=== PATIENT | female | born 1965 | race Caucasian/White ===

== ENCOUNTER 2022-12-26 12:36 | Inpatient (IN) | payer SELFPAY ==
--- OUTSIDE RECORDS SUMMARY | 2022-12-26 12:39 | XMS REPORT | Continuity of Care Document ---
:1965 Author Organization [facility] t Address [address] [place] [address] Care Team Providers Name Role Phone Donna Montes Primary Care Physician Radiology Attending Clinician Unavailable RADIOLOGY Attending Clinician Unavailable Problems This patient has no known problems. Allergies, Adverse Reactions, Alerts Allergy Allergy Status Severity Reaction(s) Onset Inactive Treating Comm ents Source Name Type Date Date Clinician NO KNOWN Drug Active [facility] Social Habit Start Date Stop Date Quantity Comments Source Exposure to 2022-04-19 2022-04-29 Not sure [facility] SARS-CoV-2 (event) 00:00:00 13:56:00 Medica l Branch Sex Assigned At [birth year] [place] [facility] 00:00:00 00:00:00 [facility] [place] Smoking Status Start Date Stop Date Source Unknown if ever smoked [facility] Medications This patient has no known medications. Procedures Procedure Date / Time Performing Clinician Source Performed CT LOW DOSE LUNG NODULE 2022-05-10 13:19:00 Ifeanyi Barr [facility] PATIENT FINANCIAL 2022-05-10 12:58:44 Doctor Unassigned, [facility] POLICY [facility] NO SHOW OR MISSED 2022-05-10 12:58:29 Doctor Unassigned, [facility] APPOINTMENT POLICY [facility] ACKNOWLEDGEMENT NOTICE OF PRIVACY 2022-05-10 12:58:12 Doctor Unassigned, Univers [facility] PRACTICES [facility] CONSENT/REFUSAL FOR 2022-05-10 12:57:57 Doctor Unassigned, [facility] DIAGNOSIS AND TREATMENT [facility] ASSIGNMENT OF BENEFITS 2022-05-10 12:57:43 [facility] Encounters Start End Encounter Admission Attending Care Care Encounter Source Date/Time Date/Time Type Type Clinicians Facility Department ID 2022-05-10 2022-05-10 [facility] Radiology [facility] [id number] Univers 08:00:35 23:59:00 Encounter [place] [id number] ity of [place] [id number] [facility] [id number] [facility] [address] Branch 2022-05-10 2022-05-10 [facility] Radiology [facility] [id number] Univers 07:55:25 07:59:00 Encounter [place] [id number] [facility] [id number] [facility] [id number] [facility] [address] 2022-05-10 2022-05-10 Outpatient R RADIOLOGY [facility] [id number] Univers 00:00:00 07:59:00 [facility] Results Test Description Test Time Test Comments Results Result Comments Source LIPID PANEL 2022-04-17 04:17:29 Test Item Value Reference Range Interpretation Comme nts CHOLESTEROL (test code = 2210) 255 MG/DL <200 H TRIGLYCERIDES (test code = 2232) 127 MG/DL <150 HDL CHOLESTEROL (test code = 58 MG/DL >39 2220) CALC LDL CHOL (test code = 2237) 171 MG/DL <100 H NOTE: CALCULATED LDL IS BASED ON SHANTA-VILLARREAL METHOD WHICHINCLUDES A DJUSTABLE TRIGLYCERIDE:VL DL CHOLESTEROL RATIO.THIS FACT OR VARIES BY MEASURED TRIGLY CERIDE AND NON-HDLCHOLESTE ROL CONCENTRATIONS WITH INCREASED CALCULATED LDL SEENIN HIGHER T RIGLYCERIDE OR LOWER NON-HDL S PECIMENS. FOR MOREINFORMATION , SEE CLIENT ANNOUNCEMENT AT [email or web address] RATIO LDL/HDL (test code = 2.95 RATIO <3.22 2238) COMPREHENSIVE METABOLIC [id number] 04:17:29 Test Item Value Reference Range Interpretation Comments GLUCOSE (test code = 90 MG/DL 70-99 2216) BUN (test code = 11 MG/DL 6-20 2207) CREATININE (test 1.04 MG/DL 0.60-1.30 code = 2214) eGFR (2020 CKD-EPI) 63 ML/MIN/1.73 >60 (test code = 13315) CALC BUN/CREAT (test 11 RATIO - code = 2235) SODIUM (test code = 141 MEQ/L 111-102 6406) POTASSIUM (test code 5.2 MEQ/L 3.5-5.4 = 2227) CHLORIDE (test code 102 MEQ/L 95-107 = 2214) CARBON DIOXIDE (test 29 MEQ/L 19-31 code = 2206) CALCIUM (test code = 8.8 MG/DL 8.5-10.5 2208) PROTEIN, TOTAL (test 6.6 G/DL 6.1-8.3 code = 2228) ALBUMIN (test code = 4.1 G/DL 3.5-5.2 2200) CALC GLOBULIN (test 2.5 G/DL 1.9-3.7 code = 2240) CALC A/G RATIO (test 1.6 RATIO 1.0-2.6 code = 223) BILIRUBIN, TOTAL 0.2 MG/DL See_Comment [Automated message] (test code = 220) The syste m which generated this result transmit danielle reference range : <=1.2. The refe rence range was not u sed to interpret th is result as normal/abnormal . ALKALINE PHOSPHATASE 86 U/L 40-133 (test code = 2204) AST (test code = 15 U/L 9-40 2217) ALT (test code = 16 U/L 5-40 2218) CBC W/AUTO DIFF WITH [id number] 02:44:36 Test Item Value Reference Range Interpretation Comments WBC (test code = 6.1 K/UL 3.5-11.0 1001) RBC (test code = 3.98 M/UL 3.80-5.40 1002) HEMOGLOBIN (test 10.6 G/DL 11.5-15.5 L code = 1003) HEMATOCRIT (test 33.7 % 34.0-45.0 L code = 1004) MCV (test code = 84.7 fL 80.0-99.0 1005) MCH (test code = 26.6 PG 25.0-33.0 1006) MCHC (test code = 31.5 G/DL 31.0-36.0 1007) RDW (test code = 14.2 % 11.5-15.0 1038) NEUTROPHILS (test 59.8 % code = 1008) LYMPHOCYTES (test 25.0 % code = 1010) MONOCYTES (test code 9.3 % = 1011) EOSINOPHILS (test 4.1 % code = 1012) BASOPHILS (test code 1.5 % = 1013) IMMATURE 0.3 % GRANULOCYTES (test code = 1036) NUCLEATED RBCS (test 0.0 /100 See_Comment [Autom ated message] code = 1065) WBC'S The system [employer] generated this result transmitted ref erence range: 0.0. The reference range was not used to int erpret this result as normal/abnormal . PLATELET COUNT (test 263 K/UL 130-400 code = 1015) ABSOLUTE NEUTROPHILS 3.67 K/UL 1.50-7.50 (test code = 1066) ABSOLUTE LYMPHOCYTES 1.53 K/UL 1.00-4.00 (test code = 1067) ABSOLUTE MONOCYTES 0.57 K/UL 0.20-1.00 (test code = 1068) ABSOLUTE EOSINOPHILS 0.25 K/UL 0.00-0.50 (test code = 1040) ABSOLUTE BASOPHILS 0.09 K/UL 0.00-0.20 (test code = 1069) ABS IMMATURE 0.02 K/UL 0.00-0.10 GRANULOCYTES (test code = 1020) ABS NUCLEATED RBCS 0.00 K/UL 0.00-0.11 UNLESS O THERWISE (test code = 72437) INDICATE D, ALL TESTING PERFORM [facility] [place]. [address] [place] [id number] [facility] DIRECTOR: KERA JOEL M.D. CLIA NUMBER [id number] CAP ACCREDITATION N O. [id number]
[2022-12-26] MEDS ORDERED: NA CHLORIDE 0.9% 1,000 ML ONE (12:59)
[2022-12-26 13:12] LABS: Hematocrit 29.5 % (36.0-45.0); Lymphocytes % 8.4 % (15.3-44.8); MCV 85.6 fL (80-100); MPV 6.6 fL (7.6-11.3); RBC Red Blood Cell Count 3.45 M/uL (3.86-4.86)
[2022-12-26 13:20] LABS: Protime INR 1.33
[2022-12-26 13:32] LABS: Albumin 2.5 g/dL (3.4-5.0); Bilirubin Direct 0.2 mg/dL (0-0.2); Bilirubin Total 0.4 mg/dL (0.2-1.0); Potassium 3.8 mmol/L (3.5-5.1); Protein, Total 6.6 g/dL (6.4-8.2); Troponin High Sensitivity 7.3 pg/mL (<58.9)
[2022-12-26 13:46] LABS: Urine Blood Trace-intact (Negative); Urine Glucose Negative (Negative); Urine Protein Negative (Negative); Urine pH 5.5 (5.0-7.0)
--- NOTE | 2022-12-26 13:49 | RAD REPORT ---
EXAM DESCRIPTION: RAD - Chest Single View - 12/26/2022 1:11 pm CLINICAL HISTORY: DYSPNEA COMPARISON: None TECHNIQUE: AP portable chest image was obtained 12/26/2022 1:11 pm . FINDINGS: Dense consolidation is seen in the lateral right lung base. In the acute clinical setting this is most likely pneumonia. Correlation is needed with any clinical or laboratory findings for pne umonia. A more aggressive or malignant mass is possible if there are no pneumonia findings. Overall interstitial pattern is prominent with the baseline for the patient unknown. There is no vasc ular engorgement. Heart size is normal. Retrocardiac density is most likely a small hiatal hernia. No measurable pleural effusion and no pneumothorax. No acute bony abnormality seen. No acute aortic findings suspected. IMPRESSION: Focal mass density lateral right lung base on a baseline study. This is typically pneumonia in the acute clinical setting. A more aggressive mass is possible if ther e are no pneumonia findings.
[2022-12-26 13:51] LABS: Urine Bacteria None Seen /HPF (<20); Urine RBC <5 /HPF (None Seen)
[2022-12-26] MEDS ORDERED: CEFTRIAXONE 1000 MG/VIAL ONE (14:58)
[2022-12-26] MEDS ORDERED: NA CHLORIDE 0.9% 250 ML ONE (14:59)
[2022-12-26] MEDS ORDERED: AZITHROMYCIN 500 MG INJ IVPB ONE (14:59)
--- NOTE | 2022-12-26 15:30 | RAD REPORT ---
EXAM DESCRIPTION: CT - Chest For Pe Angio - 12/26/2022 2:50 pm CLINICAL HISTORY: r/o PE COMPARISON: No comparisons TECHNIQUE: Dynamically enhanced 3 mm thick images of the chest were obtained during administration o f approximately 150mL Isovue 370 IV contrast. Coronal and oblique MIP reconstruction images were gene rated and reviewed. Exam utilizes a protocol to evaluate the pulmonary arterial tree. All CT scans are performed using dose optimization technique as appropriate and may include automated exposure control or mA/KV adjustment according to patient size. FINDINGS: No pulmonary emboli are identified. The aorta as imaged shows no acute or suspicious finding. No cardiomegaly. There is minimal pericardi al effusion seen anteriorly. In the anterolateral right lung base of the right middle lobe, abutting the pleura, there is a 6 x 4 centimeter soft tissue mass present. There are no air bronchograms within the mass. No calcifications are present. Margins are irregular. This is the correlate to the chest film abnormality. No pleural effusion or pleural thickening. No other lung parenchymal abnormality identified. Small right hilar lymph nodes are present. There is small lymph nodes present as well along the right side of the subcarinal region of the mediastinum. Retrocaval-pretracheal lymph node is present 14 x 14 mm. Right middle lobe mass abuts the pleura but does not clearly invade the chest wall. Moderately large hiatal hernia is present. IMPRESSION: No pulmonary emboli identified. A 6 x 4 cm mass in the lateral right middle lobe abutting the pleura is present in the correlate to t he chest film abnormality.The top differential consideration is a primary lung malignancy. Atypical p resentation of pneumonia is possible. Pulmonary hemorrhage is doubtful in the absence of pulmonary em bolus. Small hilar and mediastinal lymph nodes are present and could be reactive or pathologic.
--- NOTE | 2022-12-26 15:46 | ER ---
Nurse's Notes [facility] Name: Ingrid Hodgson Age: 57 yrs Sex: Female : 1965 Arrival Date: 12/26/2022 Time: 12:38 Bed 3 Private MD: Diagnosis: Other pneumonia, unspecified organism;Dehydration;Palpitations Presentation: 12/26 12:39 Chief complaint: EMS states: Palpitations and SOB x 4 days. AOx4, HR 120s, SBP 70s, hb improved to 90 after 1L NS administered to 20g LAC. ST on 12 lead. Coronavirus screen: At this time, the client does not indicate any symptoms associated with coronavirus-19. Ebola Screen: No symptoms or risks identified at this time. Initial Sepsis Screen: Does the patient meet any 2 criteria? No. Patient's initial sepsis screen is negative. Does the patient have a suspected source of infection? No. Patient's initial sepsis screen is negative. Risk Assessment: Do you want to hurt yourself or someone else? Patient reports no desire to harm self or others. Onset of symptoms was December 23, 2022. 12:39 Method Of Arrival: EMS: [facility] hb 12:39 Acuity: ANTWON 2 hb 12:40 Care prior to arrival: Medication(s) given: Normal saline infusion, 1000 mL, IV hb initiated. 20 GA, in the left antecubital area. Triage Assessment: 12:42 General: Appears in no apparent distress. ill, Behavior is calm, cooperative. Pain: hb Denies pain. EENT: No signs and/or symptoms were reported regarding the EENT system. Neuro: Level of Consciousness is awake, alert, obeys commands, Oriented to person, place, time, situation. Cardiovascular: Reports palpitations, shortness of breath, Patient's skin is warm and dry. Respiratory: Respiratory effort is even, unlabored, Respiratory pattern is regular, symmetrical. GI: No signs and/or symptoms were reported involving the gastrointestinal system. : No signs and/or symptoms were reported regarding the genitourinary system. Derm: Skin is intact, Skin is dry, Skin is pale. Musculoskeletal: No signs and/or symptoms reported regarding the musculoskeletal system. Historical: - Allergies: 12:41 No Known Allergies; hb - Home Meds: 17:38 Prilosec 40 mg Oral cpDR 1 cap once daily [Active]; lisinopril 20 mg Oral tab 1 tab hb twice a day [Active]; amlodipine 5 mg tab 1 tab nightly [Active]; Lopressor 50 mg Oral tab nightly [Active]; mobic [Active]; amitriptyline 50 mg Oral tab 1 tab nightly [Active]; - PMHx: 12:41 COPD; hb 12:43 HTN; hb - Immunization history:: Adult Immunizations up to date. - Social history:: Smoking status: Patient denies any tobacco usage or history of. Screenin:43 [facility] ED Fall Risk Assessment (Adult) Score/Fall Risk Level 3 or more points = High hb Risk Oriented to surroundings, Maintained a safe environment, Educated pt \T\ family on fall prevention, incl call for assistance when getting out of bed. Abuse screen: Denies threats or abuse. Denies injuries from another. Nutritional screening: No deficits noted. Tuberculosis screening: No symptoms or risk factors identified. Assessment: 12:43 General: See triage assessment. hb 13:51 Reassessment: Patient appears in no apparent distress at this time. Patient and/or hb family updated on plan of care and expected duration. Pain level reassessed. Patient is alert, oriented x 3, equal unlabored respirations, skin warm/dry/pink. 14:37 Reassessment: Patient appears in no apparent distress at this time. Patient and/or hb family updated on plan of care and expected duration. Pain level reassessed. Patient is alert, oriented x 3, equal unlabored respirations, skin warm/dry/pink. 15:35 Reassessment: Patient appears in no apparent distress at this time. Patient and/or hb family updated on plan of care and expected duration. Pain level reassessed. Patient is alert, oriented x 3, equal unlabored respirations, skin warm/dry/pink. 16:14 Reassessment: Patient appears in no apparent distress at this time. Patient and/or hb family updated on plan of care and expected duration. Pain level reassessed. Patient is alert, oriented x 3, equal unlabored respirations, skin warm/dry/pink. 17:23 Reassessment: Patient appears in no apparent distress at this time. Patient and/or hb family updated on plan of care and expected duration. Pain level reassessed. Patient is alert, oriented x 3, equal unlabored respirations, skin warm/dry/pink. 18:08 Reassessment: Patient appears in no apparent distress at this time. Patient and/or hb family updated on plan of care and expected duration. Pain level reassessed. Patient is alert, oriented x 3, equal unlabored respirations, skin warm/dry/pink. Vital Signs: 12:39 BP 115 / 77; Pulse 128; Resp 17; Temp 98.3; Pulse Ox 98% on R/A; Weight 81.19 kg; hb Height 5 ft. 4 in. (162.56 cm); Pain 0/10; 13:00 BP 95 / 68; Pulse 126; Resp 17; Pulse Ox 100% on R/A; hb 15:13 BP 108 / 74; Pulse 124; Resp 23; Pulse Ox 99% on R/A; hb 16:04 BP 100 / 68; Pulse 130; Resp 18; Pulse Ox 97% on R/A; hb 17:23 BP 106 / 72; Pulse 119; Resp 15; Pulse Ox 97% on R/A; hb 18:08 BP 104 / 71; Pulse 115; Resp 21; Pulse Ox 100% on R/A; hb 12:39 Body Mass Index 30.72 (81.19 kg, 162.56 cm) hb ED Course: 12:38 Patient arrived in ED. hb 12:39 [facility]sec[facility] jh7 12:39 Kevin Stein MD is Attending Physician. jh7 12:41 Triage completed. hb 12:41 Arm band placed on. hb 12:45 Soumya Brunson, RN is Primary Nurse. hb 13:13 XRAY Chest (1 view) In Process Unspecified. EDMS 13:50 Urine Microscopic Only Sent. mm9 14:52 CT Chest For PE Angio In Process Unspecified. EDMS 15:45 Manuel Villaseñor MD is Hospitalizing Provider. jh7 18:41 SARS RAPID Sent. hb Administered Medications: 13:03 Drug: NS 0.9% 1000 ml Route: IV; Rate: 125 ml/hr; Site: left antecubital; hb 15:13 Drug: Rocephin (cefTRIAXone) 1 grams Route: IV; Rate: 1 calculated rate; Site: left hb antecubital; 15:14 Drug: AZITHromycin 500 mg Route: IVPB; Infused Over: 1 hrs; Site: left antecubital; hb Medication: 12:43 VIS not applicable for this client. hb Outcome: 15:46 Decision to Hospitalize by Provider. [email or web address] 21:10 Patient left the ED. as6 Signatures: Dispatcher [employer] EDSoumya Bardales, RN Ady Stoner RN RN as6 Poornima Canseco, HEAD CHARRER HEAD CHARRER [facility] Ilene Liu [facility]
--- NOTE | 2022-12-26 15:46 | EDPHYS ---
Physician Documentation [facility] Name: Ingrid Hodgson Age: 57 yrs Sex: Female : 1965 Arrival Date: 12/26/2022 Time: 12:38 Bed 3 Private MD: ED Physician Kevin Stein HPI: 12/26 12:38 This 57 yrs old Female presents to ER via EMS with complaints of Palpitations. jh7 12:38 The patient presents with a history of heart racing. Context: The symptoms occur at jh7 rest. Onset: The symptoms/episode began/occurred this morning. Associated signs and symptoms: Pertinent positives: chest pain, lightheadedness, SOB, Pertinent negatives: syncope, vomiting. 57-year-old female presents with palpitations, chest pressure, shortness of breath, and nausea. EMS reports sinus tach in the 140s upon arrival and hypotension in the 70s. Reports that the patient improved after a 1 L bolus given in route. Blood glucose 159. Reports that the patient has been experiencing dark urine, dry mucous membranes, and dehydration. PCP Dr. Murphy.. Historical: - Allergies: 12:41 No Known Allergies; hb - Home Meds: 17:38 Prilosec 40 mg Oral cpDR 1 cap once daily [Active]; lisinopril 20 mg Oral tab 1 tab hb twice a day [Active]; amlodipine 5 mg tab 1 tab nightly [Active]; Lopressor 50 mg Oral tab nightly [Active]; mobic [Active]; amitriptyline 50 mg Oral tab 1 tab nightly [Active]; - PMHx: 12:41 COPD; hb 12:43 HTN; hb - Immunization history:: Adult Immunizations up to date. - Social history:: Smoking status: Patient denies any tobacco usage or history of. ROS: 12:38 Constitutional: Negative for fever, chills, and weight loss, Eyes: Negative for injury, jh7 pain, redness, and discharge, Neck: Negative for injury, pain, and swelling, Abdomen/GI: Negative for abdominal pain, nausea, vomiting, diarrhea, and constipation, Back: Negative for injury and pain, MS/Extremity: Negative for injury and deformity, Skin: Negative for injury, rash, and discoloration, Neuro: Negative for headache, weakness, numbness, tingling, and seizure. 12:38 Cardiovascular: Positive for chest pain, palpitations. 12:38 Respiratory: Positive for shortness of breath, Negative for cough, wheezing. 12:38 All other systems are negative. Exam: 12:38 Head/Face: Normocephalic, atraumatic. Eyes: Pupils equal round and reactive to light, jh7 extra-ocular motions intact. Lids and lashes normal. Conjunctiva and sclera are non-icteric and not injected. Cornea within normal limits. Periorbital areas with no swelling, redness, or edema. 12:38 Neck: Trachea midline, no thyromegaly or masses palpated, and no cervical lymphadenopathy. Supple, full range of motion without nuchal rigidity, or vertebral point tenderness. No Meningismus. 12:38 Chest/axilla: Normal chest wall appearance and motion. Nontender with no deformity. No lesions are appreciated. Cardiovascular: Regular rate and rhythm with a normal S1 and S2. No gallops, murmurs, or rubs. Normal PMI, no JVD. No pulse deficits. Abdomen/GI: Soft, non-tender, with normal bowel sounds. No distension or tympany. No guarding or rebound. No evidence of tenderness throughout. Back: No spinal tenderness. No costovertebral tenderness. Full range of motion. MS/ Extremity: Pulses equal, no cyanosis. Neurovascular intact. Full, normal range of motion. Neuro: Awake and alert, GCS 15, oriented to person, place, time, and situation. Motor strength 5/5 in all extremities. Sensory grossly intact. Normal gait. 12:38 Constitutional: The patient appears alert, awake, restless, uncomfortable. 12:38 Respiratory: the patient does not display signs of respiratory distress, Respirations: normal, Breath sounds: decreased breath sounds, are heard in the right lower lobe, Respiratory rate: 20 12:38 Skin: Appearance: Color: pale. Vital Signs: 12:39 BP 115 / 77; Pulse 128; Resp 17; Temp 98.3; Pulse Ox 98% on R/A; Weight 81.19 kg; hb Height 5 ft. 4 in. (162.56 cm); Pain 0/10; 13:00 BP 95 / 68; Pulse 126; Resp 17; Pulse Ox 100% on R/A; hb 15:13 BP 108 / 74; Pulse 124; Resp 23; Pulse Ox 99% on R/A; hb 16:04 BP 100 / 68; Pulse 130; Resp 18; Pulse Ox 97% on R/A; hb 17:23 BP 106 / 72; Pulse 119; Resp 15; Pulse Ox 97% on R/A; hb 18:08 BP 104 / 71; Pulse 115; Resp 21; Pulse Ox 100% on R/A; hb 12:39 Body Mass Index 30.72 (81.19 kg, 162.56 cm) hb MDM: 12:39 Patient medically screened. [facility] 15:45 Differential diagnosis: arrythmia, dehydration, Pneumonia, sepsis, pulmonary embolism, jh7 acute IN, SVT. Data reviewed: vital signs, nurses notes, lab test result(s), EKG, radiologic studies, CT scan, plain films. Consideration of Admission/Observation Patient was admitted/placed on observation. Management of patient was discussed with the following: Hospitalist: Dr. Villaseñor. I considered the following discharge prescriptions or medication management in the emergency department Medications were administered in the Emergency Department. See MAR. Independent interpretation of the following test(s) in the Emergency Department EKG: See my EKG interpretation above. Care significantly affected by the following chronic conditions: Hypertension, Chronic Obstructive Pulmonary Disease. Counseling: I had a detailed discussion with the patient and/or guardian regarding: the historical points, exam findings, and any diagnostic results supporting the discharge/admit diagnosis, the need for further work-up and treatment in the hospital. ED course: Lung malignancy versus atypical pneumonia. Spoke to the patient who stated that she has been a heavy smoker for most of her life and that they found to areas on her lung concerning for cancer. Reports that she had both an x-ray and a CT then and they told her to follow-up. She reports that she has had a cough for many years but that within the past 2 days the cough has become more productive and that the shortness of breath worsen. Explained to her that we will treat her for atypical pneumonia and dehydration that lung malignancy is unlikely finding based on the CT results.. 12/26 12:46 Order name: Basic Metabolic Panel; Complete Time: 13:37 [facility] 12/26 12:46 Order name: CBC with Diff; Complete Time: 13:30 [facility] 12/26 12:46 Order name: D-Dimer; Complete Time: 13:30 [facility] 12/26 12:46 Order name: LFT's; Complete Time: 13:37 [facility] 12/26 12:46 Order name: Magnesium; Complete Time: 13:37 [facility] 12/26 12:46 Order name: NT PRO-BNP; Complete Time: 13:37 [facility] 12/26 12:46 Order name: PT-INR; Complete Time: 13:30 [facility] 12/26 12:46 Order name: Troponin HS; Complete Time: 13:37 [facility] 12/26 12:46 Order name: Lactate w/ 2H reflex if indic.; Complete Time: 13:37 [facility] 12/26 12:46 Order name: CK; Complete Time: 13:37 [facility] 12/26 12:47 Order name: Urine Microscopic Only; Complete Time: 13:54 [facility] 12/26 13:46 Order name: Urine Dipstick-Ancillary; Complete Time: 13:48 [facility] 12/26 14:16 Order name: Blood Culture Adult (2) [facility] 12/26 18:27 Order name: CBC with Automated Diff EDMS 12/26 12:46 Order name: XRAY Chest (1 view); Complete Time: 13:54 [facility] 12/26 13:29 Order name: CT Chest For PE Angio; Complete Time: 15:34 [facility] 12/26 18:27 Order name: CBC with Automated Diff EDMS / 18:27 Order name: Comprehensive Metabolic Panel EDMS 12/26 18:27 Order name: Comprehensive Metabolic Panel EDMS 12/26 18:27 Order name: Lipid Profile EDMS 12/26 18:27 Order name: Lipid Profile EDMS 12/26 18:27 Order name: Magnesium EDMS 12/26 18:27 Order name: Magnesium EDMS 12/26 18:27 Order name: NT PRO-BNP EDMS 12/26 18:27 Order name: NT PRO-BNP EDMS 12/26 18:27 Order name: Phosphorus EDMS 12/26 18:27 Order name: Phosphorus EDMS 12/26 18:28 Order name: SARS RAPID kj1 12/26 18:51 Order name: SARS-COV-2 Antigen Rapid EDMS 12/26 12:46 Order name: EKG; Complete Time: 12:47 [facility] 12/26 12:46 Order name: Cardiac monitoring; Complete Time: 12:53 [facility] 12/26 12:46 Order name: EKG - Nurse/Tech; Complete Time: 12:53 [facility] 12/26 12:46 Order name: IV Saline Lock; Complete Time: 12:53 [facility] 12/26 12:46 Order name: Labs collected and sent; Complete Time: 13:03 [facility] 12/26 12:46 Order name: O2 Per Protocol; Complete Time: 12:53 [facility] 12/26 12:46 Order name: O2 Sat Monitoring; Complete Time: 12:53 [facility] 12/26 12:47 Order name: Urine Dipstick-Ancillary (obtain specimen); Complete Time: 13:50 [facility] 12/26 18:27 Order name: CONS Physician Consult [facility] 12/26 18:27 Order name: Heart Healthy EDKS EC:38 Rate is 123 beats/min. Rhythm is regular. QRS [place] is Normal. QRS interval is normal at [facility] 86 msec. QT interval is normal at 422 msec. No Q waves. Clinical impression: Accelerated junctional rhythm with retrograde conduction. Administered Medications: 13:03 Drug: NS 0.9% 1000 ml Route: IV; Rate: 125 ml/hr; Site: left antecubital; hb 15:13 Drug: Rocephin (cefTRIAXone) 1 grams Route: IV; Rate: 1 calculated rate; Site: left hb antecubital; 15:14 Drug: AZITHromycin 500 mg Route: IVPB; Infused Over: 1 hrs; Site: left antecubital; hb Disposition Summary: 12/26/22 15:46 Hospitalization Ordered Hospitalization Status: Observation [facility] Provider: Manuel Villaseñor [facility] Location: Telemetry/MedSurg (observation) [facility] Condition: Stable [facility] Problem: chronic [facility] Symptoms: have worsened [facility] Bed/Room Type: Standard [facility] Room Assignment: [facility](12/26/22 20:07) cg Diagnosis - Other pneumonia, unspecified organism [facility] - Dehydration [facility] - Palpitations [facility] Forms: - Medication Reconciliation Form [facility] - SBAR form [facility] Signatures: Dispatcher [employer] Silvia Wright RN RN Soumya Ward RN RN Poornima Canseco FNP FNP [facility] Corrections: (The following items were deleted from the chart) 20:07 15:46 [facility] cg
[2022-12-26 18:51] LABS: SARS-CoV-2 Antigen Rapid Res Negative (Negative)
[2022-12-26] MEDS ORDERED: IPRATROPIUM BROM 0.5MG/2.5ML ONE (19:55)
[2022-12-26] MEDS ORDERED: ALBUTEROL 2.5 MG/3 ML NEB SOL ONE (19:55)
[2022-12-26] MEDS: ALBUTEROL 2.5 MG/3 ML NEB SOL NEB SCH (19:55)
[2022-12-26] MEDS: IPRATROPIUM BROM 0.5MG/2.5ML NEB SCH (19:55)
[2022-12-26] MEDS ORDERED: Levofloxacin 750mg IV 750 MG/150 ML BAG IV SCH (20:00)
[2022-12-26 22:15] VITALS: BMI 30.7
[2022-12-27] MEDS: IPRATROPIUM BROM 0.5MG/2.5ML NEB SCH ×4 (01:30→19:25)
[2022-12-27] MEDS: ALBUTEROL 2.5 MG/3 ML NEB SOL NEB SCH ×4 (01:30→19:25)
[2022-12-27] MEDS: ACETAMINOPHEN 500 MG TAB PO PRN (03:46)
[2022-12-27 06:14] LABS: Lymphocytes % 9.2 % (15.3-44.8); MCV 84.7 fL (80-100); MPV 6.4 fL (7.6-11.3); RBC Red Blood Cell Count 3.08 M/uL (3.86-4.86)
[2022-12-27 06:28] LABS: Albumin 2.3 g/dL (3.4-5.0); Bilirubin Total 0.3 mg/dL (0.2-1.0); Magnesium 2.1 mg/dL (1.6-2.4); Phosphorus 2.5 mg/dL (2.5-4.9); Potassium 3.6 mmol/L (3.5-5.1); Protein, Total 6.5 g/dL (6.4-8.2)
[2022-12-27] MEDS ORDERED: INFLUENZA VACCINE (for 6+ mo) 0.5 ML DOSE IMVAC ONE (08:00)
[2022-12-27] MEDS: levoFLOXacin 750 MG TAB PO SCH (08:26)
[2022-12-27] MEDS: ENOXAPARIN 40 MG/0.4 ML SQ SCH (08:26)
--- NOTE | 2022-12-27 11:23 | P.HP ---
Certification for Inpatient Patient admitted to: Inpatient With expected LOS: >2 Midnights Practitioner: I am a practitioner with admitting privileges, knowledge of patient current condition, hospital course, and medical plan of care. Services: Services provided to patient in accordance with Admission requirements found in Title 42 Section 412.3 of the Code of Federal Regulations Patient History Date of Service: 12/26/22 Reason for admission: Lung mass/postobstructive pneumonia History of Present Illness: Patient is a 57-year-old female who has a history of COPD from chronic tobacco use who comes into the hospital with shortness of breath. Patient was found to have a lung mass last February and she was followed up with no worsening of the lung mass. However, patient had CT scan last night which showed the lung lesion. This is worsening. Will consult pulmonary for further evaluation. Continue with antibiotic therapy. Continue with nebs, steroids, and repeat chest x-ray over the next 24 to 48 hours depending on patient's clinical symptoms. Allergies No Known Allergies Allergy (Verified 12/26/22 21:30) Home Medications: Amitriptyline [Elavil] 50 mg PO BEDTIME 12/26/22 Amlodipine Besylate [Norvasc] 5 mg PO BEDTIME 12/26/22 Lisinopril [Zestril] 20 mg PO BID 12/26/22 Metoprolol Tartrate [Lopressor] 50 mg PO BEDTIME 12/26/22 Omeprazole [Prilosec] 40 mg PO DAILY 12/26/22 - Past Medical/Surgical History Has patient received pneumonia vaccine in the past: No Diabetic: No -: COPD -: HTN -: TUBAL LIGATION - Family History Mother Medical History: Heart disease, Diabetes Father Medical History: Cancer - Social History Smoking Status: Former smoker Alcohol use: No CD- Drugs: No Caffeine use: Yes Place of Residence: Home Review of Systems 10-point ROS is otherwise unremarkable Physical Examination - Vital Signs Temperature: 97.1 F Blood Pressure: 99/68 Pulse: 102 Respirations: 18 Pulse Ox (%): 99 - Physical Exam General: Alert, In no apparent distress, Oriented x3 HEENT: Atraumatic, PERRLA, Mucous membr. moist/pink, EOMI, Sclerae nonicteric Neck: Supple, 2+ carotid pulse no bruit, No LAD, Without JVD or thyroid abnormality Respiratory: Diminished, Expiratory wheezes Cardiovascular: Regular rate/rhythm, Normal S1 S2, No murmurs Gastrointestinal: Normal bowel sounds, Soft and benign, Non-distended, No tenderness Musculoskeletal: No clubbing, No swelling, No tenderness Integumentary: No rashes Neurological: Normal gait, Normal speech, Normal strength at 5/5 x4 extr, Normal tone, Sensation intact, Cranial nerves 3-12 intact, Normal affect Lymphatics: No axilla or inguinal lymphadenopathy - Studies Laboratory Data (last 24 hrs) 12/26/22 13:00: PT 14.6 H, INR 1.33 12/26/22 13:00: WBC 11.80 H, Hgb 9.4 L, Hct 29.5 L, Plt Count 319 12/26/22 13:00: Sodium 133 L, Potassium 3.8, BUN 11, Creatinine 1.11 H, Glucose 130 H, Magnesium 2.0, Total Bilirubin 0.4, AST 23, ALT 27, Alkaline Phosphatase 79 Assessment & Plan - Problems (Diagnosis) (1) COPD with acute exacerbation Current Visit: Yes Status: Acute (2) Postobstructive pneumonia Current Visit: Yes Status: Acute (3) History of hypertension Current Visit: Yes Status: Acute (4) Tobacco dependence in remission Current Visit: Yes Status: Acute (5) Right lower lobe lung mass Current Visit: Yes Status: Acute - Plan Plan: 1. Continue with albuterol and Atrovent nebs 2. Continue with IV steroids 3. Continue with antibiotic therapy 4. Pulmonary consultation 5. Room air O2 sats 6. Repeat chest x-ray in the morning 7. GI and DVT prophylaxis Discharge Plan: Home Plan to discharge in: Greater than 2 days - Advance Directives Does patient have a Living Will: No Does patient have a Durable POA for Healthcare: No - Code Status/Comfort Care Code Status Assessed: Yes Code Status: Full Code Critical Care: No Time Spent Managing PTS Care (In Minutes): 45
[2022-12-27] MEDS: ONDANSETRON 4 MG/2 ML VIAL IV PRN (11:46)
--- NOTE | 2022-12-27 12:00 | P.CNS ---
Date of Consult: 12/27/22 Reason for Consult: Right lower lobe lung mass Chief Complaint: Hemoptysis History of Present Illness: Patient is 57 years of age been having problems for the past 6 months had episodes of hypertension associated with hemoptysis as complaining of the sunken spells I saw her in August last year pneumonia had gotten better this time patient doing worse over the past 4 days came in here was tachycardic he is also had intermittent hemoptysis CT scan shows a right lower lobe lung mass Allergies No Known Allergies Allergy (Verified 12/26/22 21:30) Home Medications: Amitriptyline [Elavil] 50 mg PO BEDTIME 12/26/22 Amlodipine Besylate [Norvasc] 5 mg PO BEDTIME 12/26/22 Lisinopril [Zestril] 20 mg PO BID 12/26/22 Metoprolol Tartrate [Lopressor] 50 mg PO BEDTIME 12/26/22 Omeprazole [Prilosec] 40 mg PO DAILY 12/26/22 - Past Medical/Surgical History Diabetic: No -: COPD -: HTN -: TUBAL LIGATION - Family History Mother Medical History: Heart disease, Diabetes Father Medical History: Cancer - Social History Alcohol use: No CD- Drugs: No Caffeine use: Yes Place of Residence: Home Review of Systems General: Weakness Respiratory: Cough Physical Examination Temp Pulse Resp BP Pulse Ox 97.1 F 102 H 18 99/68 99 12/27/22 11:22 12/27/22 11:22 12/27/22 11:22 12/27/22 11:22 12/27/22 11:22 General: Alert, In no apparent distress Neck: Supple Respiratory: Clear to auscultation bilaterally Cardiovascular: No edema, Normal S1 S2 Laboratory Data (last 24 hrs) 12/26/22 13:00: PT 14.6 H, INR 1.33 12/26/22 13:00: WBC 11.80 H, Hgb 9.4 L, Hct 29.5 L, Plt Count 319 12/26/22 13:00: Sodium 133 L, Potassium 3.8, BUN 11, Creatinine 1.11 H, Glucose 130 H, Magnesium 2.0, Total Bilirubin 0.4, AST 23, ALT 27, Alkaline Phosphatase 79 - Problems (1) Right lower lobe lung mass Current Visit: Yes Status: Acute Plan: Patient is 57 years of age admitted with tachycardia history of hemoptysis does have a right lower lobe lung mass most likely she has lung cancer and to arrange for an FNA by radiology patient is a former smoker mildly elevated white count she is also anemic normocytic blood pressure is also slightly low mild cardiomegaly cussed with the patient risk and benefit of the procedure including bleeding infection lung collapse patient is on multiple blood pressure pills at home Addendum CT scan reviewed from [facility] last year did not show this lung mass
--- NOTE | 2022-12-27 15:38 | P.PN ---
Subjective Date of Service: 12/27/22 Patient states she feels better. Patient is scheduled for bronchoscopy in a.m. N.p.o. after midnight. Review of Systems 10-point ROS is otherwise unremarkable Physical Examination - Vital Signs Temperature: 97.1 F Blood Pressure: 99/68 Pulse: 102 Respirations: 18 Pulse Ox (%): 99 - Physical Exam General: Alert, In no apparent distress, Oriented x3 HEENT: Atraumatic, PERRLA, EOMI Neck: Supple, JVD not distended Respiratory: Clear to auscultation bilaterally, Normal air movement Cardiovascular: Regular rate/rhythm, Normal S1 S2 Gastrointestinal: Normal bowel sounds, No tenderness Musculoskeletal: No tenderness Integumentary: No rashes Neurological: Normal speech, Normal tone, Normal affect Lymphatics: No axilla or inguinal lymphadenopathy - Studies Medications List Reviewed: Yes Assessment & Plan - Problems (Diagnosis) (1) COPD with acute exacerbation Current Visit: Yes Status: Acute (2) Postobstructive pneumonia Current Visit: Yes Status: Acute (3) History of hypertension Current Visit: Yes Status: Acute (4) Tobacco dependence in remission Current Visit: Yes Status: Acute (5) Right lower lobe lung mass Current Visit: Yes Status: Acute - Plan Plan: 1. Continue with albuterol and Atrovent nebs 2. Continue with IV steroids 3. Continue with antibiotic therapy 4. Pulmonary consultation -scheduled for bronchoscopy in a.m. 5. Room air O2 sats 6. Repeat chest x-ray in the morning 7. GI and DVT prophylaxis - Advance Directives Does patient have a Living Will: No Does patient have a Durable POA for Healthcare: No - Code Status/Comfort Care Code Status: Full Code
[2022-12-27] MEDS ORDERED: CYCLOBENZAPRINE 10 MG TAB PO ONE (15:56)
[2022-12-27] MEDS: lisinopriL 20 MG TAB PO SCH (20:20)
[2022-12-27] MEDS: METOPROLOL TAR 50 MG TAB PO SCH (20:24)
[2022-12-27] MEDS: AMITRIPTYLINE 50 MG TAB PO SCH (20:50)
[2022-12-27] MEDS ORDERED: AMLODIPINE 5 MG TAB PO SCH (21:00)
[2022-12-28] MEDS: TEMAZEPAM 15 MG CAP PO PRN ×2 (00:45→21:29)
[2022-12-28] MEDS: ALBUTEROL 2.5 MG/3 ML NEB SOL NEB SCH ×4 (01:20→20:00)
[2022-12-28] MEDS: IPRATROPIUM BROM 0.5MG/2.5ML NEB SCH ×4 (01:20→20:20)
[2022-12-28 06:42] LABS: Absolute Lymphocytes (CBC) 1.2 K/uL (0.7-4.9); Hematocrit 27.8 % (36.0-45.0); MPV 6.5 fL (7.6-11.3); RBC Red Blood Cell Count 3.31 M/uL (3.86-4.86)
--- NOTE | 2022-12-28 06:55 | RAD REPORT ---
EXAM DESCRIPTION: RAD - Chest Single View - 12/28/2022 6:18 am CLINICAL HISTORY: pneumonia COMPARISON: Portable 12/26/2022 TECHNIQUE: AP portable chest image was obtained 12/28/2022 6:18 am . FINDINGS: Right lung base mass density has not changed. Lung markings are accentuated by a more shal low inspiration on the current examination compared to 12/26/2022 imaging. Heart size and vasculature are stable. No pneumothorax or enlarging pleural effusion. Delete select IMPRESSION: Stable portable chest as detailed.
[2022-12-28 07:02] LABS: Magnesium 2.2 mg/dL (1.6-2.4); Potassium 3.6 mmol/L (3.5-5.1)
[2022-12-28] MEDS ORDERED: POTASSIUM CL SA 10 MEQ TAB PO ONE (09:00)
[2022-12-28] MEDS ORDERED: HOME MED 1 EA UNK (Omeprazole [Prilosec] 40 MG Capsule.Dr) PO SCH (09:00)
[2022-12-28] MEDS: PANTOPRAZOLE 40MG TABLET PO SCH (09:04)
[2022-12-28] MEDS: lisinopriL 20 MG TAB PO SCH ×2 (09:04→21:28)
[2022-12-28] MEDS: levoFLOXacin 750 MG TAB PO SCH (09:05)
[2022-12-28] MEDS: ENOXAPARIN 40 MG/0.4 ML SQ SCH (09:05)
[2022-12-28] MEDS: CYCLOBENZAPRINE 10 MG TAB PO PRN ×2 (09:06→21:29)
[2022-12-28] MEDS: ACETAMINOPHEN 500 MG TAB PO PRN (13:40)
[2022-12-28] MEDS: AMITRIPTYLINE 50 MG TAB PO SCH (21:00)
[2022-12-28] MEDS: METOPROLOL TAR 50 MG TAB PO SCH (21:28)
[2022-12-29] MEDS: ALBUTEROL 2.5 MG/3 ML NEB SOL NEB SCH ×4 (02:00→19:38)
[2022-12-29] MEDS: IPRATROPIUM BROM 0.5MG/2.5ML NEB SCH ×4 (02:00→19:38)
--- NOTE | 2022-12-29 05:49 | P.PN ---
Date of Service: 12/28/22 Subjective Patient bronchoscopy/FNA scheduled for tomorrow. Anticipate discharge after the bronchoscopy is completed for outpatient follow-up. Review of Systems 10-point ROS is otherwise unremarkable Physical Examination - Vital Signs Reviewed - Physical Exam General: Alert, In no apparent distress, Oriented x3 Respiratory: Clear to auscultation bilaterally, Normal air movement Cardiovascular: Regular rate/rhythm, Normal S1 S2 Gastrointestinal: Normal bowel sounds, No tenderness Musculoskeletal: No tenderness Neurological: Normal speech, Normal tone, Normal affect Assessment & Plan - Problems (Diagnosis) (1) COPD with acute exacerbation Current Visit: Yes Status: Acute (2) Postobstructive pneumonia Current Visit: Yes Status: Acute (3) History of hypertension Current Visit: Yes Status: Acute (4) Tobacco dependence in remission Current Visit: Yes Status: Acute (5) Right lower lobe lung mass Current Visit: Yes Status: Acute - Plan Continue with plan of care as mentioned below: 1. Continue with albuterol and Atrovent nebs 2. Continue with IV steroids 3. Continue with antibiotic therapy 4. Pulmonary consultation -scheduled for bronchoscopy/FNA in a.m. 5. Room air O2 sats 6. Repeat chest x-ray in the morning 7. GI and DVT prophylaxis - Advance Directives Does patient have a Living Will: No Does patient have a Durable POA for Healthcare: No - Code Status/Comfort Care Code Status: Full Code
--- NOTE | 2022-12-29 05:49 | P.PN ---
Date of Service: 12/29/22 Subjective Pt post-biopsy was tachycardia, tachypneic-anxiolytics given. Will check additonal labs hypotensive; will monitor in ICU Physical Examination - Vital Signs Reviewed - Physical Exam General: Alert, In no apparent distress, Oriented x3 Respiratory: Right sided basialr crackles Cardiovascular: Regular rate/rhythm, Normal S1 S2 Gastrointestinal: Normal bowel sounds, No tenderness Musculoskeletal: No tenderness Neurological: Normal speech, Normal tone, Normal affect Assessment & Plan - Problems (Diagnosis) (1) COPD with acute exacerbation Current Visit: Yes Status: Acute (2) Postobstructive pneumonia Current Visit: Yes Status: Acute (3) History of hypertension Current Visit: Yes Status: Acute (4) Tobacco dependence in remission Current Visit: Yes Status: Acute (5) Right lower lobe lung mass Current Visit: Yes Status: Acute - Plan Continue with plan of care as mentioned below: 1. Continue with albuterol and Atrovent nebs 2. Continue with IV steroids 3. Continue with antibiotic therapy 4. Pulmonary consultation appreicated; s/p biopsy 5. Room air O2 sats 6. Repeat chest x-ray in the morning 7. GI and DVT prophylaxis - Advance Directives Does patient have a Living Will: No Does patient have a Durable POA for Healthcare: No - Code Status/Comfort Care Code Status: Full Code
[2022-12-29] MEDS: PANTOPRAZOLE 40MG TABLET PO SCH ×2 (08:13→13:52)
[2022-12-29] MEDS: lisinopriL 20 MG TAB PO SCH ×2 (08:13→21:00)
[2022-12-29] MEDS: levoFLOXacin 750 MG TAB PO SCH ×2 (08:15→13:52)
[2022-12-29 09:01] LABS: Albumin 2.4 g/dL (3.4-5.0); Bilirubin Total 0.2 mg/dL (0.2-1.0); Potassium 3.8 mmol/L (3.5-5.1); Protein, Total 6.9 g/dL (6.4-8.2)
[2022-12-29] MEDS ORDERED: FENTANYL CITR 100 MCG/2 ML ONE (11:14)
[2022-12-29] MEDS ORDERED: MIDAZOLAM HCL 2 MG/2 ML INJ ONE (11:14)
[2022-12-29] MEDS ORDERED: NALOXONE 0.4 MG/ML VIAL ONE (11:15)
[2022-12-29] MEDS ORDERED: FLUMAZENIL 0.1 MG/ML (5 mL VIAL) IV ONE (11:15)
--- NOTE | 2022-12-29 12:26 | RAD REPORT ---
EXAM DESCRIPTION: CT - Lung Biopsy Perc w/CT - 12/29/2022 12:04 pm CLINICAL HISTORY: Lung mass TECHNIQUE: The risks, benefits and alternatives to the procedure were explained to the patient and i nformed consent obtained. Patient was medicated with IV 1.5 milligrams Versed said and 75 micrograms fentanyl. Conscious sedati on performed for approximately 40 minutes. The patient was placed supine into the CT scanner. The right middle lobe mass was localized. Skin and subcutaneous tissues were anesthetized with lidocaine. Under CT guidance a 17 gauge needle was placed into the mass. Through this four 2 centimeter core specimens obtained. The tissue was given to pathology. All CT scans are performed using dose optimization technique as appropriate and may include automated exposure control or mA/KV adjustment according to patient size. IMPRESSION: Core biopsies of the right middle lobe mass
[2022-12-29] MEDS: CYCLOBENZAPRINE 10 MG TAB PO PRN ×2 (13:52→21:03)
--- NOTE | 2022-12-29 14:37 | RAD REPORT ---
EXAM DESCRIPTION: RAD - Chest Single View - 12/29/2022 2:29 pm CLINICAL HISTORY: Post Lung Biopsy Chest pain. COMPARISON: Chest Single View dated 12/28/2022; Chest Single View dated 12/26/2022 FINDINGS: Portable technique limits examination quality. No evidence of postprocedure pneumothorax.
[2022-12-29] MEDS: ONDANSETRON 4 MG/2 ML VIAL IV PRN (15:13)
[2022-12-29] MEDS ORDERED: ALPRAZOLAM 0.5 MG TABLET PO ONE (15:25)
[2022-12-29 15:49] LABS: Absolute Lymphocytes (CBC) 1.1 K/uL (0.7-4.9); Hematocrit 31.8 % (36.0-45.0); Lymphocytes % 7.5 % (15.3-44.8); MCV 83.5 fL (80-100); MPV 6.4 fL (7.6-11.3); RBC Red Blood Cell Count 3.81 M/uL (3.86-4.86)
[2022-12-29 16:28] LABS: Albumin 2.5 g/dL (3.4-5.0); Bilirubin Total 0.2 mg/dL (0.2-1.0); Protein, Total 7.4 g/dL (6.4-8.2); Troponin High Sensitivity 4.2 pg/mL (<58.9)
[2022-12-29 16:30] LABS: Potassium 3.9 mmol/L (3.5-5.1)
[2022-12-29] MEDS: MORPHINE 2 MG/ML SYR IV PRN (16:42)
--- NOTE | 2022-12-29 17:00 | RAD REPORT ---
EXAM DESCRIPTION: RAD - Chest Single View - 12/29/2022 4:52 pm CLINICAL HISTORY: pneumonia Chest pain. COMPARISON: Chest Single View dated 12/29/2022; Chest Single View dated 12/28/2022; Chest Single View da danielle 12/26/2022 FINDINGS: Portable technique limits examination quality. Moderate opacity in the right lung base appears unchanged since 12/28/2022. No postprocedure pneumoth orax seen. Left lung is grossly clear. The heart is mildly enlarged in size.
[2022-12-29] MEDS: ACETAMINOPHEN 500 MG TAB PO PRN (19:50)
[2022-12-29] MEDS: METOPROLOL TAR 50 MG TAB PO SCH (21:00)
[2022-12-29] MEDS: AMITRIPTYLINE 50 MG TAB PO SCH (21:00)
[2022-12-29] MEDS: TEMAZEPAM 15 MG CAP PO PRN (21:03)
[2022-12-29] MEDS ORDERED: NA CHLORIDE 0.9% 500 ML IV ONE (21:06)
[2022-12-29] MEDS ORDERED: ALBUMIN HUMAN 25% 100 ML IV ONE (21:06)
[2022-12-29] MEDS ORDERED: ACETAMINOPHEN 500 MG TAB PO ONE (21:09)
[2022-12-29] MEDS ORDERED: HYDROCORTISONE SUC 100 MG INJ IV ONE (21:37)
--- NOTE | 2022-12-29 23:38 | P.PN ---
Date of Service: 12/29/22 Was notified this evening that patient was tachycardic, hypotensive, and febrile. EKG did not show any acute changes. I went to assess patient and she appeared uncomfortable, diaphoretic. Discussed case with attending- 500 mL bolus, 25 grams albumin, and 50 mg solucortef ordered. Blood pressure did not respond adequately so decision was made to transfer patient to ICU. I additionally obtained repeat blood cultures, lactate, and zosyn. Once patient arrived to ICU, her vitals improved without vasopressor therapy. Lactate returned normal. Patient is now resting comfortably.
[2022-12-30] MEDS ORDERED: NOREPINEPHRINE 4 MG in D5W 250 ML IV SCH (00:26)
[2022-12-30] MEDS: PIPER TAZO 3.375 GM in NA CHLORIDE 0.9% 100 ML IV SCH ×3 (01:09→16:56)
[2022-12-30] MEDS: IPRATROPIUM BROM 0.5MG/2.5ML NEB SCH ×4 (02:00→19:45)
[2022-12-30] MEDS: ALBUTEROL 2.5 MG/3 ML NEB SOL NEB SCH ×4 (02:00→19:45)
[2022-12-30 06:46] LABS: Albumin 2.5 g/dL (3.4-5.0); Bilirubin Total 0.4 mg/dL (0.2-1.0); Magnesium 2.1 mg/dL (1.6-2.4); Phosphorus 4.3 mg/dL (2.5-4.9); Potassium 3.8 mmol/L (3.5-5.1); Protein, Total 6.5 g/dL (6.4-8.2)
[2022-12-30] MEDS: PANTOPRAZOLE 40MG TABLET PO SCH (08:59)
[2022-12-30] MEDS: lisinopriL 20 MG TAB PO SCH ×2 (08:59→20:40)
[2022-12-30] MEDS: ENOXAPARIN 40 MG/0.4 ML SQ SCH (08:59)
[2022-12-30] MEDS: CYCLOBENZAPRINE 10 MG TAB PO PRN (11:29)
[2022-12-30] MEDS: levoFLOXacin 750 MG TAB PO SCH (11:30)
--- NOTE | 2022-12-30 12:10 | P.PN ---
Subjective Date of Service: 12/30/22 Chief Complaint: Hypotension tachycardia Patient developed sudden onset of hyper hypotension and tachycardia after the procedure planing of chest pain chest x-ray today has worsened pleural effusion is worse and more likely pulmonary hemorrhage from the biopsy Review of Systems General: Weakness Respiratory: Shortness of Breath Cardiovascular: Chest Pain Physical Examination - Vital Signs Temperature: 97 F Blood Pressure: 103/65 Pulse: 117 Respirations: 24 Pulse Ox (%): 98 - Physical Exam General: Alert, In no apparent distress, Moderate distress Respiratory: Diminished (Finished on the right side) Cardiovascular: No edema, Regular rate/rhythm - Studies Medications List Reviewed: Yes Assessment And Plan - Current Problems (Diagnosis) (1) Right lower lobe lung mass Current Visit: Yes Status: Acute Plan: S/p FNA pathology pending (2) Hemothorax on right Current Visit: Yes Status: Acute Plan: Patient has developed a hemothorax on the right side after the biopsy ordered a chest CT scan will need a chest tube discussed with Dr. Villaseñor
--- NOTE | 2022-12-30 12:12 | RAD REPORT ---
EXAM DESCRIPTION: RAD - Chest Single View - 12/30/2022 12:04 pm CLINICAL HISTORY: sob Chest pain. COMPARISON: Chest Single View dated 12/29/2022; Chest Single View dated 12/29/2022; Chest Single View da danielle 12/28/2022; Chest Single View dated 12/26/2022 FINDINGS: Portable technique limits examination quality. Right hemithorax opacification has progressed moderately since yesterday's study. The heart is modera tely enlarged in size. The heart is normal in size. No displaced fractures. IMPRESSION: Mild to moderate worsening in right hemithorax opacification since comparative study.
[2022-12-30 13:04] LABS: Hematocrit 29.7 % (36.0-45.0); Lymphocytes % 4.7 % (15.3-44.8); MCV 83.1 fL (80-100); MPV 6.5 fL (7.6-11.3); RBC Red Blood Cell Count 3.57 M/uL (3.86-4.86)
[2022-12-30 13:05] LABS: RBC Red Blood Cell Count 3.57 M/uL (3.86-4.86)
[2022-12-30] MEDS ORDERED: LIDOCAINE 1% MPF 5 ML VIAL ONE ×3 (13:09→14:26)
--- NOTE | 2022-12-30 13:24 | RAD REPORT ---
EXAM DESCRIPTION: CT - Thorax Wo Con CLINICAL HISTORY: Chest pain SP biopsy likley bleeding COMPARISON: Chest For Pe Angio dated 12/26/2022 FINDINGS: Since 12/30/2022, a moderate to large loculated right pleural effusion has developed. Cons olidation/ atelectasis of the right lower lung is present, obscuring the recently biopsied lung lesio n. The left lung is clear. No left pleural effusion. No pneumothorax. Mildly prominent mediastinal lymph nodes are again seen. No concerning bony finding. Large hiatal hernia. All CT scans are performed using dose optimization technique as appropriate and may include automated exposure control or mA/KV adjustment according to patient size. IMPRESSION: Moderate to large loculated right pleural effusion has developed since comparative study . Significant compressive atelectasis is present right lower lobe.
[2022-12-30 13:32] LABS: Thyroid Stimulating Hormone 5.09 uIU/mL (0.358-3.740)
[2022-12-30] MEDS: MORPHINE 2 MG/ML SYR IV PRN (14:20)
[2022-12-30] MEDS ORDERED: LIDOCAINE 1% 20 ML MDV ONE (14:29)
--- NOTE | 2022-12-30 15:07 | RAD REPORT ---
EXAM DESCRIPTION: RAD - Chest Single View - 12/30/2022 2:58 pm CLINICAL HISTORY: chest tube placement Chest pain. COMPARISON: Chest Single View dated 12/30/2022; Chest Single View dated 12/29/2022; Chest Single View da danielle 12/29/2022; Chest Single View dated 12/28/2022 FINDINGS: Portable technique limits examination quality. A right sided chest tube has in place, directed cephalad. Right pleural effusion appears unchanged si nce earlier study same date. The heart is normal in size. Left lung is grossly clear.
--- NOTE | 2022-12-30 16:58 | P.OP ---
Primary procedure: Right-sided hemothorax Secondary procedure: The same Other procedure(s): Incision of 22 Syriac thoracostomy catheter Anesthesia: Local Estimated blood loss: Less than 10 cc Operative Technique: After a surgical timeout, the patient was positioned on the OR bed with the right arm abducted and behind the head, and the area of the anterior chest marked. Having reviewed the CT scan it looks like a right-sided sixth intercostal space in the anterior axillary line would be the best position for a percutaneous placement. The area was then prepped with a DuraPrep solution and draped in usual manner. After injecting with 1% lidocaine a finder needle was used to go through the skin and palpate the rib. We were able to slide just over the top and enter into the chest cavity at the level of up the sixth space as best we could determine clinically. On aspiration of this area we did not encounter any fluid nor any air but it felt like we were inside the actual thoracic cavity. We were able to pass a guidewire with no trauma after our thorough needle pass. We only encountered a small amount of bloodstained pleural fluid. It was not possible to angle our guidewire inferiorly as what felt like to be adhesions possibly from tumor to the pleural cavity. At this point I did place the 16 Syriac catheter to rule out any possible pneumothorax. My plan is to leave it for 24 hours and if no definite air leak to remove it. I will discuss this with Dr. Leon. At the end of the procedure the patient was in a stable condition the catheter had been sutured to the chest wall a sterile dressing applied and the Pleur-evac set up. Complications: None Drain(s): Other (Right 16 Syriac thoracostomy catheter) Transferred to: ICU Condition: Good
[2022-12-30] MEDS: ACETAMINOPHEN 500 MG TAB PO PRN (18:30)
[2022-12-30] MEDS: FENTANYL CITR 100 MCG/2 ML IV PRN (20:38)
[2022-12-30] MEDS: AMITRIPTYLINE 50 MG TAB PO SCH (20:39)
[2022-12-30] MEDS: TEMAZEPAM 15 MG CAP PO PRN (21:27)
[2022-12-31] MEDS: FENTANYL CITR 100 MCG/2 ML IV PRN ×5 (01:35→21:24)
[2022-12-31] MEDS: PIPER TAZO 3.375 GM in NA CHLORIDE 0.9% 100 ML IV SCH ×3 (01:38→17:37)
[2022-12-31] MEDS: IPRATROPIUM BROM 0.5MG/2.5ML NEB SCH ×5 (02:00→19:35)
[2022-12-31] MEDS: ALBUTEROL 2.5 MG/3 ML NEB SOL NEB SCH ×6 (02:00→20:00)
--- NOTE | 2022-12-31 05:13 | P.PN ---
Date of Service: 12/30/22 Subjective Patient remains tachycardic. Chest x-ray showed significantly worsening right pleural effusion from the day prior. Spoke with Pulmonary and they recommended chest tube placement. Chest tube placed by general surgeon. However very minimal output. Effusion is loculated. Possibly will need transfer to tertiary care facility for VATS procedure. Physical Examination - Vital Signs Reviewed - Physical Exam General: Alert, In no apparent distress, Oriented x3 Respiratory: Diminished breath sounds at the right lung Cardiovascular: tachycardic Gastrointestinal: Normal bowel sounds, No tenderness Musculoskeletal: No tenderness Neurological: no focal deficits Assessment & Plan - Problems (Diagnosis) (1) Large loculated pleural effusion Current Visit: Yes Status: Acute (2) COPD with acute exacerbation/Postobstructive pneumonia Current Visit: Yes Status: Acute (3) History of hypertension Current Visit: Yes Status: Acute (4) Tobacco dependence in remission Current Visit: Yes Status: Acute (5) Right lower lobe lung mass Current Visit: Yes Status: Acute - Plan Continue with plan of care as mentioned below: 1. patient is status post chest tube placement. Large loculated effusion of the right lung. may need a VATS procedure 2. Continue with albuterol and Atrovent nebs; Continue with IV steroids 3. Continue with antibiotic therapy 4. Pulmonary consultation s/p biopsy 5. continue with O2 per protocol. Working up other causes of sinus tachycardia but most likely related to a pleural effusion which we suspect to be hemorrhagic. will discuss with Pulmonary regarding transfer since chest tube placement did not result in removal of pleural effusion 6. continuing with monitoring pulmonary status with chest x-rays 7. GI and DVT prophylaxis - Advance Directives Does patient have a Living Will: No Does patient have a Durable POA for Healthcare: No - Code Status/Comfort Care Code Status: Full Code
[2022-12-31 06:33] LABS: Absolute Lymphocytes (CBC) 0.8 K/uL (0.7-4.9); Hematocrit 29.3 % (36.0-45.0); Lymphocytes % 3.7 % (15.3-44.8); MPV 6.6 fL (7.6-11.3); RBC Red Blood Cell Count 3.53 M/uL (3.86-4.86)
[2022-12-31 06:46] LABS: Potassium 3.5 mmol/L (3.5-5.1)
--- NOTE | 2022-12-31 07:41 | RAD REPORT ---
[facility]27 [facility] CLINICAL HISTORY: Device placement. Chest tube placement. Pleural effusion COMPARISON: December 30, 2022 FINDINGS: Right chest tube remains in place. A pneumothorax is not seen. No change in the pleural effusion/right lung opacities Left lung appears clear. Heart is normal size
[2022-12-31 07:46] LABS: Blood Morphology Comment NOT SEEN (NOT SEEN); Platelet Estimate ADEQ; Toxic Granulation 1+
[2022-12-31] MEDS: levoFLOXacin 750 MG TAB PO SCH (08:08)
[2022-12-31] MEDS: ENOXAPARIN 40 MG/0.4 ML SQ SCH ×2 (08:08→08:36)
[2022-12-31] MEDS: PANTOPRAZOLE 40MG TABLET PO SCH (08:08)
[2022-12-31] MEDS: lisinopriL 20 MG TAB PO SCH (09:00)
[2022-12-31] MEDS: ACETAMINOPHEN 500 MG TAB PO PRN (12:35)
[2022-12-31] MEDS: CYCLOBENZAPRINE 10 MG TAB PO PRN (12:35)
[2022-12-31] MEDS ORDERED: VANCOMYCIN 1 GM in NA CHLORIDE 0.9% 250 ML IVPB SCH (14:00)
--- NOTE | 2022-12-31 14:04 | P.PN ---
Subjective Date of Service: 12/31/22 Chief Complaint: Right-sided presumed hemothorax Patient is still complaining of chest pain nothing has been drained via the chest tube for loculated effusion most likely loculated hemothorax his x-ray and CAT scan has been look worse since the biopsy also complaining of pain dyspnea she is also tachycardic Review of Systems General: Weakness Respiratory: Cough, Shortness of Breath Cardiovascular: Chest Pain Physical Examination - Vital Signs Temperature: 97.8 F Blood Pressure: 116/95 Pulse: 132 Respirations: 25 Pulse Ox (%): 98 - Physical Exam General: Alert, Mild distress Respiratory: Diminished (Diminished on the right side) Cardiovascular: No edema, Regular rate/rhythm, Normal S1 S2 - Studies Medications List Reviewed: Yes Assessment And Plan - Current Problems (Diagnosis) (1) Right lower lobe lung mass Current Visit: Yes Status: Acute Plan: S/p FNA pathology pending (2) Hemothorax on right Current Visit: Yes Status: Acute Plan: Patient has a loculated hemothorax on the right side she has been having some pain for quite a few weeks CT scan shows a loculated effusion most likely loculated hemothorax got worse after the biopsy patient will need to be transferred to [place] for a VATS procedure White count is also elevated agree with Franky (3) Tachycardia Current Visit: Yes Status: Acute Plan: DC lisinopril add low-dose diltiazem to control her tachycardia she has had a history of SVT before sinus rhythm
[2022-12-31] MEDS: DILTIAZEM HCL 60 MG TAB PO SCH ×3 (15:03→23:29)
[2022-12-31] MEDS: LIDOCAINE 4% PATCH TOP SCH (15:04)
[2022-12-31] MEDS: VANCOMYCIN 1.5 GM in NA CHLORIDE 0.9% 500 ML IVPB SCH (15:33)
[2022-12-31] MEDS: AMITRIPTYLINE 50 MG TAB PO SCH (21:18)
[2022-12-31] MEDS: TEMAZEPAM 15 MG CAP PO PRN (21:19)
--- NOTE | 2022-12-31 22:53 | P.PN ---
Date of Service: 12/31/22 Subjective PATIENT IS CLINICALLY DOING BETTER. HOWEVER, THE EFFUSION IS STILL PRESENT ON CHEST X-RAY. DISCUSSED THE CASE WITH PULMONARY. PLAN TO TRANSFER TO TERTIARY CARE FACILITY FOR VATS PROCEDURE TO CLEAR OUT THE LOCULATIONS. HEART RATE IS ELEVATED AND THEY WANT TO TRY CARDIZEM TO TRY A LOWER HEART RATE. Review of Systems 10-point ROS is otherwise unremarkable Physical Examination - Vital Signs Reviewed - Physical Exam General: Alert, In no apparent distress, Oriented x3 Respiratory: Chest tube in place on the right lung with diminished breath sounds Cardiovascular: Regular rate/rhythm, Normal S1 S2 Gastrointestinal: Normal bowel sounds, No tenderness Musculoskeletal: No tenderness Neurological: no focal deficits Assessment & Plan - Problems (Diagnosis) (1) COPD with acute exacerbation status post fine-needle aspiration of lung mass; secondary hemothorax which is loculated status post chest tube placement Current Visit: Yes Status: Acute (2) Postobstructive pneumonia Current Visit: Yes Status: Acute (3) History of hypertension Current Visit: Yes Status: Acute (4) Tobacco dependence in remission Current Visit: Yes Status: Acute (5) Right lower lobe lung mass Current Visit: Yes Status: Acute - Plan Continue with plan of care as mentioned below: 1. Continue with albuterol and Atrovent nebs; Continue with IV steroids 2. Added Cardizem to regimen 3. Continue with antibiotic therapy 4. Pulmonary consultation appreciated; arranging for transfer to tertiary care facility for possible VATS procedure 5. O2 to keep sats greater than 90%; awaiting biopsy results 6. Repeat chest x-ray shows persistent loculation. Transferring for VATS procedure to [facility] 7. GI and DVT prophylaxis
[2023-01-01] MEDS: PIPER TAZO 3.375 GM in NA CHLORIDE 0.9% 100 ML IV SCH ×3 (00:27→16:38)
[2023-01-01] MEDS: ALBUTEROL 2.5 MG/3 ML NEB SOL NEB SCH ×5 (01:35→20:05)
[2023-01-01] MEDS: IPRATROPIUM BROM 0.5MG/2.5ML NEB SCH ×4 (01:35→20:05)
[2023-01-01] MEDS: FENTANYL CITR 100 MCG/2 ML IV PRN ×4 (01:46→20:40)
[2023-01-01 05:22] LABS: Absolute Lymphocytes (CBC) 0.9 K/uL (0.7-4.9); Hematocrit 26.4 % (36.0-45.0); Lymphocytes % 4.6 % (15.3-44.8); MPV 6.5 fL (7.6-11.3); RBC Red Blood Cell Count 3.18 M/uL (3.86-4.86)
[2023-01-01 05:37] LABS: Potassium 3.5 mmol/L (3.5-5.1)
[2023-01-01] MEDS: DILTIAZEM HCL 60 MG TAB PO SCH ×4 (07:13→23:34)
[2023-01-01] MEDS: PANTOPRAZOLE 40MG TABLET PO SCH (08:45)
[2023-01-01] MEDS: CYCLOBENZAPRINE 10 MG TAB PO PRN (08:45)
[2023-01-01] MEDS: VANCOMYCIN 1.5 GM in NA CHLORIDE 0.9% 500 ML IVPB SCH (08:46)
[2023-01-01] MEDS: LIDOCAINE 4% PATCH TOP SCH (08:46)
[2023-01-01] MEDS ORDERED: POTASSIUM CL SA 10 MEQ TAB PO ONE (09:00)
[2023-01-01] MEDS: HYDROCODONE/CHLORPHEN 5 ML/OSYR PO PRN (16:38)
[2023-01-01] MEDS: TEMAZEPAM 15 MG CAP PO PRN (20:39)
[2023-01-01] MEDS: AMITRIPTYLINE 50 MG TAB PO SCH (20:39)
--- NOTE | 2023-01-01 23:59 | P.PN ---
Date of Service: 01/01/23 Subjective spoke with transfer center at [facility] as well as cardiothoracic surgeon and hospitalist. Patient was accepted to the facility. Hoping we can get patient transferred subjective get VATS procedure. CT surgeon agreeable for med surge floor. However, hospitalist wanted to watch patient on intermediate care or the step-down unit. Patient is hemodynamically stable and hemoglobin is stable as well. We should be able to get patient transferred later today. Physical Examination - Vital Signs Reviewed - Physical Exam General: Alert, In no apparent distress, Oriented x3 Respiratory: Diminished breath sounds at the right lung Cardiovascular: tachycardic Gastrointestinal: Normal bowel sounds, No tenderness Musculoskeletal: No tenderness Neurological: no focal deficits Assessment & Plan - Problems (Diagnosis) (1) Large loculated pleural effusion Current Visit: Yes Status: Acute (2) COPD with acute exacerbation/Postobstructive pneumonia Current Visit: Yes Status: Acute (3) History of hypertension Current Visit: Yes Status: Acute (4) Tobacco dependence in remission Current Visit: Yes Status: Acute (5) Right lower lobe lung mass Current Visit: Yes Status: Acute - Plan Continue with plan of care as mentioned below: 1. Patient is status post chest tube placement. Large loculated effusion of the right lung. PATIENT HAD MINIMAL CHEST TUBE OUTPUT SO WILL MOST LIKELY NEEDS A VATS PROCEDURE 2. Continue with albuterol and Atrovent nebs; Continue with IV steroids 3. Continue with antibiotic therapy 4. Pulmonary consultation appreciated 5. continue with O2 per protocol. Working up other causes of sinus tachycardia but most likely related to a pleural effusion/hemothorax; attempting transfer to tertiary care facility for VATS procedure 6. continuing with monitoring pulmonary status with chest x-rays 7. GI and DVT prophylaxis - Advance Directives Does patient have a Living Will: No Does patient have a Durable POA for Healthcare: No - Code Status/Comfort Care Code Status: Full Code
--- NOTE | 2023-01-02 | P.PN ---
Date of Service: 01/02/23 Subjective Patient is a 57-year-old female who came to the hospital with postobstructive pneumonia. Patient had a lung mass that was biopsied on Tuesday. She is going to be discharged with outpatient follow-up; however, she developed a hemothorax. Chest tube was placed, but the hemothorax was loculated. Chest tube output was very minimal. Repeat chest x-ray showed persistent pleural effusion. We initiated transfer to thoracic surgery. I spoke with the thoracic surgeon as well as hospitalist and they have accepted. Patient was initially accepted to intermediate care. However, we have downgraded the patient to our med surge unit so we should be able to get her transferred to the med-surg unit. Physical Examination - Vital Signs Reviewed - Physical Exam General: Alert, In no apparent distress, Oriented x3 Respiratory: Diminished breath sounds at the right lung; chest tube is in place Cardiovascular: tachycardic Gastrointestinal: Normal bowel sounds, No tenderness Musculoskeletal: No tenderness Neurological: no focal deficits Assessment & Plan - Problems (Diagnosis) (1) Large loculated pleural effusion/hemothorax Current Visit: Yes Status: Acute (2) COPD with acute exacerbation/Postobstructive pneumonia Current Visit: Yes Status: Acute (3) History of hypertension Current Visit: Yes Status: Acute (4) Tobacco dependence in remission Current Visit: Yes Status: Acute (5) Right lower lobe lung mass Current Visit: Yes Status: Acute - Plan Continue with plan of care as mentioned below: 1. Patient is status post chest tube placement. Large loculated effusion of the right lung. PATIENT HAD MINIMAL CHEST TUBE OUTPUT SO WILL MOST LIKELY NEEDS A VATS PROCEDURE; initiated transferred to [facility] inpatient has been accepted by thoracic surgeon as well as hospitalist. 2. Continue with albuterol and Atrovent nebs; Continue with IV steroids 3. Continue with antibiotic therapy 4. Pulmonary consultation appreciated 5. continue with O2 per protocol. Working up other causes of sinus tachycardia but most likely related to a pleural effusion/hemothorax; DC chest tube in AM 6. continuing with monitoring pulmonary status with chest x-rays 7. GI and DVT prophylaxis
[2023-01-02] MEDS: PIPER TAZO 3.375 GM in NA CHLORIDE 0.9% 100 ML IV SCH ×3 (00:24→17:03)
[2023-01-02] MEDS: ALBUTEROL 2.5 MG/3 ML NEB SOL NEB SCH ×6 (00:55→20:00)
[2023-01-02] MEDS: IPRATROPIUM BROM 0.5MG/2.5ML NEB SCH ×4 (00:55→19:45)
[2023-01-02] MEDS: FENTANYL CITR 100 MCG/2 ML IV PRN (02:30)
[2023-01-02] MEDS: HYDROCODONE/CHLORPHEN 5 ML/OSYR PO PRN ×2 (02:34→18:03)
[2023-01-02] MEDS: VANCOMYCIN 1.5 GM in NA CHLORIDE 0.9% 500 ML IVPB SCH ×2 (02:39→21:38)
[2023-01-02 05:21] LABS: Absolute Lymphocytes (CBC) 0.8 K/uL (0.7-4.9); Hematocrit 24.5 % (36.0-45.0); Lymphocytes % 4.8 % (15.3-44.8); MPV 6.4 fL (7.6-11.3); RBC Red Blood Cell Count 2.92 M/uL (3.86-4.86)
[2023-01-02 05:29] LABS: Potassium 3.5 mmol/L (3.5-5.1)
[2023-01-02] MEDS: DILTIAZEM HCL 60 MG TAB PO SCH ×4 (06:19→23:08)
[2023-01-02] MEDS ORDERED: NA CHLORIDE 0.9% 100 ML ONE (08:45)
[2023-01-02] MEDS: PANTOPRAZOLE 40MG TABLET PO SCH (08:47)
[2023-01-02] MEDS: LIDOCAINE 4% PATCH TOP SCH (08:47)
[2023-01-02] MEDS ORDERED: POTASSIUM CL SA 10 MEQ TAB PO ONE (09:00)
[2023-01-02] MEDS ORDERED: FENTANYL 25 MCG/PATCH TD SCH (09:00)
[2023-01-02] MEDS: CYCLOBENZAPRINE 10 MG TAB PO PRN (15:56)
[2023-01-02] MEDS ORDERED: NA CHLORIDE 0.9% 1,000 ML IV SCH (17:00)
[2023-01-02 18:00] LABS: Absolute Lymphocytes (CBC) 1.1 K/uL (0.7-4.9); Hematocrit 25.2 % (36.0-45.0); Lymphocytes % 6.4 % (15.3-44.8); MCV 82.2 fL (80-100); MPV 6.5 fL (7.6-11.3); RBC Red Blood Cell Count 3.06 M/uL (3.86-4.86)
[2023-01-02] MEDS: AMITRIPTYLINE 50 MG TAB PO SCH (21:00)
[2023-01-02] MEDS ORDERED: TEMAZEPAM 15 MG CAP PO PRN (22:16)
[2023-01-03] MEDS: PIPER TAZO 3.375 GM in NA CHLORIDE 0.9% 100 ML IV SCH ×2 (01:00→09:19)
[2023-01-03] MEDS: IPRATROPIUM BROM 0.5MG/2.5ML NEB SCH ×3 (02:25→14:55)
[2023-01-03] MEDS: ALBUTEROL 2.5 MG/3 ML NEB SOL NEB SCH ×3 (02:25→14:55)
[2023-01-03] MEDS: DILTIAZEM HCL 60 MG TAB PO SCH ×2 (06:24→12:32)
[2023-01-03 07:57] LABS: Magnesium 2.4 mg/dL (1.6-2.4); Phosphorus 2.9 mg/dL (2.5-4.9)
[2023-01-03 08:04] LABS: Potassium 3.4 mmol/L (3.5-5.1)
[2023-01-03] MEDS ORDERED: AMIODARONE HCL 150 MG in D5W 100 ML IV SCH (08:15)
[2023-01-03] MEDS ORDERED: AMIODARONE HCL 900 MG in Dextrose 5%-Water 482 ML IV SCH (08:30)
[2023-01-03] MEDS ORDERED: POTASSIUM CL SA 10 MEQ TAB PO ONE (09:00)
[2023-01-03] MEDS ORDERED: VANCOMYCIN 1.5 GM in NA CHLORIDE 0.9% 500 ML IVPB SCH (09:00)
[2023-01-03] MEDS: PANTOPRAZOLE 40MG TABLET PO SCH (09:20)
[2023-01-03] MEDS: LIDOCAINE 4% PATCH TOP SCH (09:20)
[2023-01-03] MEDS: CYCLOBENZAPRINE 10 MG TAB PO PRN (09:38)
[2023-01-03] MEDS: HYDROCODONE/CHLORPHEN 5 ML/OSYR PO PRN (11:57)
[2023-01-03 12:12] VITALS: BP 102/58; TEMP 96.8
--- NOTE | 2023-01-03 13:15 | P.DS ---
Admission Date: 12/26/22 Discharge Date: 01/03/23 Disposition: TRANSFER TO [facility] Discharge Condition: FAIR Reason for Admission: Right-sided presumed hemothorax Consultations: 1. General Surgery 2. Pulmonary Medicine Procedures: - 12/29/2022 = CT-guided Lung Mass Biopsy - 12/30/2022 = Incision of 22 Serbian Thoracostomy Catheter Hospital Course: DIAGNOSES: # Sepsis secondary to Post-Obstructive Pneumonia - POA # Acute Chronic Obstructive Pulmonary Disease Exacerbation # Acute Hypoxic Respiratory Failure secondary to COPD and Moderate-Large Loculated Right Pleural Effusion s/p Thoracostomy tube # Right Lower Lobe Lung Mass - concern for Malignancy # Hypertension HOSPITAL COURSE: Ms. Ingrid Hodgson is a pleasant 57 year old female with a past medical history significant for chronic obstructive pulmonary disease and hypertension who was admitted to the [facility] on 12/26/2022 for shortness of breath. She was admitted to the Medicine service. Upon further evaluation, CT chest revealed, "no pulmonary emboli identified. A 6 x 4 cm mass in the lateral right middle lobe abutting the pleura is present in the correlate to the chest film abnormality.The top differential consideration is a primary lung malignancy. Atypical presentation of pneumonia is possible. Pulmonary hemorrhage is doubtful in the absence of pulmonary embolus. Small hilar and mediastinal lymph nodes are present and could be reactive or pathologic." Pulmonary Medicine was consulted and she was evaluated by Dr. Lerma. On 12/29/2022, she underwent a CT-guided biopsy; however, pathology results are currently pending. Over the course of her hospitalization, her oxygen requirements gradually incre ased. Repeat CT chest revealed, "moderate to large loculated right pleural effusion has developed since comparative study. Significant compressive atelectasis is present right lower lobe." General Surgery was consulted and she was evaluated by Dr. Kimbrough. A thoracostomy tube was placed. Despite its placement, her output from the tube remained low. It was thought that she would benefit from a video-assisted thoracoscopic surgery (VATS) procedure. Transfer was initiated to [facility]. Doc-to-doc was completed with Dr. Contreras ([facility] ICU), who has generously accepted her for transfer. On 01/03/2023, she was seen on rounds and deemed medically stable for transfer. She was given the opportunity to ask questions and reported no further questions. Furthermore, all questions were answered to the best of my ability. A copy of this discharge summary will be sent to the above providers to facilitate continuity of care. Today, I personally spent 35 minutes on her case, of which greater than 50% of the time was spent in patient education, counseling, and coordination of care as described above. Vital Signs/Physical Exam: Temp Pulse Resp BP Pulse Ox 96.8 F 102 H 17 102/58 L 96 01/03/23 12:00 01/03/23 12:00 01/03/23 12:00 01/03/23 12:00 01/03/23 12:00 General: Alert, In no apparent distress, Oriented x3 HEENT: Atraumatic, EOMI, Sclerae nonicteric Neck: JVD not distended Respiratory: Diminished, Other (right thoracostomy tube with minimal to no output) Cardiovascular: No edema, Regular rate/rhythm, Normal S1 S2, No gallops, No rubs, No murmurs Gastrointestinal: Normal bowel sounds, Soft and benign, Non-distended, No tenderness, No rebound, No guarding Musculoskeletal: No clubbing Integumentary: No rashes Neurological: Normal speech, Normal affect Laboratory Data at Discharge: WBC 16.70 K/uL (4.3-10.9) H 01/02/23 17:16 Hgb 8.2 g/dL (12.0-15.0) L 01/02/23 17:16 Hct 25.2 % (36.0-45.0) L 01/02/23 17:16 Plt Count 473 K/uL (152-406) H 01/02/23 17:16 PT 14.6 SECONDS (9.5-12.5) H 12/26/22 13:00 INR 1.33 12/26/22 13:00 Sodium 128 mmol/L (136-145) L 01/03/23 07:26 Potassium 3.4 mmol/L (3.5-5.1) L 01/03/23 07:26 BUN 5 mg/dL (7-18) L 01/03/23 07:26 Creatinine 0.58 mg/dL (0.55-1.02) 01/03/23 07:26 Glucose 113 mg/dL (74-106) H 01/03/23 07:26 Phosphorus 2.9 mg/dL (2.5-4.9) 01/03/23 07:28 Magnesium 2.4 mg/dL (1.6-2.4) 01/03/23 07:28 Total Bilirubin 0.4 mg/dL (0.2-1.0) 12/30/22 06:05 AST 28 U/L (15-37) 12/30/22 06:05 ALT 40 U/L (13-56) 12/30/22 06:05 Alkaline Phosphatase 87 U/L (45-117) 12/30/22 06:05 Triglycerides 78 mg/dL (<150) 12/27/22 05:39 Cholesterol 171 mg/dL (<200) 12/27/22 05:39 HDL Cholesterol 38 mg/dL (40-60) L 12/27/22 05:39 Cholesterol/HDL Ratio 4.50 12/27/22 05:39 Home Medications: RX: Amitriptyline [Elavil*] 50 mg PO BEDTIME 12/26/22 RX: Amlodipine Besylate [Norvasc] 5 mg PO BEDTIME 12/26/22 RX: Lisinopril [Zestril] 20 mg PO BID 12/26/22 RX: Metoprolol Tartrate [Lopressor] 50 mg PO BEDTIME 12/26/22 RX: Omeprazole [Prilosec] 40 mg PO DAILY 12/26/22 Physician Discharge Instructions: - Continue medical care at [facility] Diet: AHA Activity: Fall precautions Time spent managing pt's care (in minutes): 35
[2023-01-03 15:45] VITALS: O2SAT 97
[2023-01-04] MEDS ORDERED: AMIODARONE HCL 900 MG in Dextrose 5%-Water 482 ML IV SCH (09:00)
--- NOTE | 2023-01-04 17:36 | EKG ---
Test Date: 2022-12-29 Test Time: 19:46:49 Investigations Consultant: NAHOMY MEASUREMENT RESULTS: Intervals: Rate: 132 MI: 154 QRSD: 76 QT: 286 QTc: 423 [place]: P: 37 MI: 154 QRS: 35 T: 25 INTERPRETIVE STATEMENTS: Sinus tachycardia Low voltage QRS Possible Inferior infarct, age undetermined Cannot rule out Anterior infarct, age undetermined Abnormal ECG Compared to ECG 12/26/2022 12:43:32 Low QRS voltage now present Accelerated junctional rhythm no longer present Myocardial infarct finding still present Myocardial infarct finding still present Electronically Signed On 01-04-23 17:21:26 NUCLEAR RADIATION ENGINEER by Vin Hyatt
--- NOTE | 2023-01-04 17:39 | EKG ---
Test Date: 2022-12-26 Test Time: 12:43:32 Sagger Maker: MIKHAIL MEASUREMENT RESULTS: Intervals: Rate: 123 TN: QRSD: 86 QT: 422 QTc: 604 [place]: P: TN: QRS: 57 T: 61 INTERPRETIVE STATEMENTS: Accelerated Junctional rhythm with retrograde conduction Cannot rule out Inferior infarct, age undetermined Cannot rule out Anterior infarct, age undetermined Abnormal ECG No previous ECG available for comparison Electronically Signed On 01-04-23 17:24:06 SENIOR BUSINESS ARCHITECT by Vin Hyatt
== END 2023-01-03 17:02 | disposition short-term general hospital (02) | DRG 871 ==
LOC: ER 12:36 → ERHOLD 18:19 → 2ND 20:13 → 3RD-ICU 12-30 00:31 → 4TH 01-02 19:00
PROVIDERS: ADMIT Hospitalist; ATTEND Internal Medicine
PROC: 0BBD3ZX Excision of Right Middle Lung Lobe, Percutaneous Approach, Diagnostic (ICD-10-PCS; 2022-12-29)
PROC: 0W9930Z Drainage of Right Pleural Cavity with Drainage Device, Percutaneous Approach (ICD-10-PCS; principal; 2022-12-30)
DX: A41.9 Sepsis, unspecified organism (principal); J18.9 Pneumonia, unspecified organism; J96.01 Acute respiratory failure with hypoxia; J44.1 Chronic obstructive pulmonary disease with (acute) exacerbation; J90 Pleural effusion, not elsewhere classified; J94.2 Hemothorax; J44.0 Chronic obstructive pulmonary disease with (acute) lower respiratory infection; C34.31 Malignant neoplasm of lower lobe, right bronchus or lung; E86.0 Dehydration; I10 Essential (primary) hypertension; D64.9 Anemia, unspecified; I51.7 Cardiomegaly; R00.0 Tachycardia, unspecified; Z98.51 Tubal ligation status; Z87.891 Personal history of nicotine dependence; Z79.899 Other long term (current) drug therapy; Z20.822 Contact with and (suspected) exposure to COVID-19
CPT/HCPCS: 36415; 71045; 71250; 71275; 77012; 80048; 80053; 80061; 80076; 80202; 81003; 81015; 82533; 82550; 83605; 83735; 83880; 84100; 84145; 84439; 84443; 84484; 85025; 85044; 85379; 85610; 86850; 86900; 86901; 87040; 87811; 88305; 93005; 94640; 94760; 96374; 96375; 99284; J0282; J0456; J1650; J1720; J2001; J2250; J2270; J2310; J2405; J2543; J3010; J3370; J7030; J7040; J7050; J7060; J7613; J7644; P9047; Q9967; U0003